=== PATIENT | female | born 1930 ===

== ENCOUNTER 2021-05-03 17:24 | Emergency (ER) | payer MEDICARE, MEDICAID ==
[2021-05-03 17:33] VITALS: BP 186/67
== END 2021-05-04 04:43 | disposition left against medical advice (07) ==
LOC: ED 17:24
DX: R20.0 Anesthesia of skin (principal); Z53.21 Procedure and treatment not carried out due to patient leaving prior to being seen by health care provider
CPT/HCPCS: 82962